=== PATIENT | female | born 1990 | race Caucasian/White ===

== ENCOUNTER 2017-12-06 07:12 | Inpatient (IN) | payer OTHER, MEDICAID ==
[~2017-12-06] VITALS: Ht 162.6 cm; Wt 45.9 kg
--- NOTE | ~2017-12-06 | PROC ---
[address] [address] PROCEDURE REPORT Name: RUBIN LUIS Room: [address] IN ..#: [id number] Admission: 12/06/17 Attend Phys: Isaac Bingham Discharge: Date of : 90 Report #: [id number] THIS REPORT FOR: //name// For GI report, please see the Provation report in Perceptive 7 content. By: 1449Medical Records Staff FRANNIE /SHARON
[2017-12-06 07:27] VITALS: BP 109/69
[2017-12-06] MEDS ORDERED: CARAFATE 1 GM TA1 G1 PO (07:31)
[2017-12-06] MEDS ORDERED: LACTAID FAS9000 UNIT PO (07:31)
[2017-12-06] MEDS ORDERED: BENTYL 20 MG TA20 M1 PO (07:31)
[2017-12-06] MEDS ORDERED: PREDNISONE 10 M10 MG PO (07:32)
[2017-12-06] MEDS ORDERED: TYLENOL EXTRA500 MG PO (07:32)
[2017-12-06 08:06] LABS: ABSOLUTE LYMPHOCYTES 1.5 thou/uL (0.8-5.3); ABSOLUTE MONOCYTES 1.6 thou/uL (0.0-1.2); ABSOLUTE NEUTROPHILS 9.7 thou/uL (1.6-8.1); BASOPHILS 0.2 %; EOSINOPHILS 0.3 %; HEMATOCRIT 30.1 % (37.0-47.0); HEMOGLOBIN 9.2 gm/dL (12.0-15.0); LYMPHOCYTES 11.5 %; MCH 18.7 pg (26.0-34.0); MCHC 30.4 g/dL (28.0-37.0); MCV 61.5 fL (80.0-100.0); MONOCYTES 12.7 %; MPV 6.4 fl. (7.2-11.1); NUCLEATED RBCS 0 /100WBC; PLATELET COUNT* 492 thou/uL (150-400); POLYS 75.3 %; RBC 4.89 mil/uL (4.20-5.00); RDW-CV 17.6 % (10.5-14.5); WBC 12.8 thou/uL (4.0-11.0)
[2017-12-06 08:15] LABS: CALCIUM 8.3 mg/dL (8.5-10.1); CREATININE 0.9 mg/dL (0.6-1.3)
[2017-12-06 08:19] LABS: ALBUMIN 2.5 g/dL (3.4-5.0); TOTAL BILIRUBIN 0.6 mg/dL (<0.1-1.0)
[2017-12-06 08:22] LABS: POTASSIUM 2.7 mmol/L (3.5-5.1)
[2017-12-06 08:27] LABS: ANISOCYTOSIS 2+; HYPOCHROMASIA 2+; MICROCYTES 2+; PLATELET ESTIMATE ADEQUATE; POLYCHROMASIA 2+
[2017-12-06 08:57] LABS: URINE BILIRUBIN NEGATIVE (Negative); URINE BLOOD 2+ (Negative); URINE CLARITY CLEAR; URINE COLOR YELLOW; URINE GLUCOSE-RANDOM NEGATIVE (Negative); URINE KETONES NEGATIVE (Negative); URINE NITRITE-REFLEX NEGATIVE (Negative); URINE PROTEIN NEGATIVE (Negative); URINE SPECIFIC GRAVITY <= 1.005 (1.005-1.030); URINE UROBILINOGEN 0.2 E.U./dl (0.2-1.0)
[2017-12-06 08:59] LABS: URINE LEUKOCYTES-REFLEX 3+ (Negative)
[2017-12-06 09:06] LABS: SQUAMOUS 0-3 Few /LPF (0-3)
[2017-12-06 09:07] LABS: CASTS None Seen /LPF (None Seen); CRYSTALS None Seen /LPF (None Seen); MUCUS 0-3 Light strn/LPF (None Seen); URINE RBC 3-10 Few /HPF (0-2)
[2017-12-06 11:48] VITALS: BP 99/63
[2017-12-06 11:55] VITALS: BP 105/42
[2017-12-06] MEDS ORDERED: PEPCID20 MG PO (14:36)
[2017-12-06 17:11] VITALS: BP 92/46
[2017-12-06 20:00] VITALS: BP 104/51
[2017-12-07 04:33] LABS: HEMATOCRIT 24.8 % (37.0-47.0); HEMOGLOBIN 7.4 gm/dL (12.0-15.0); MCH 18.7 pg (26.0-34.0); MCV 62.5 fL (80.0-100.0); MPV 6.6 fl. (7.2-11.1); RBC 3.97 mil/uL (4.20-5.00); RDW-CV 17.7 % (10.5-14.5); WBC 9.8 thou/uL (4.0-11.0)
[2017-12-07 07:45] VITALS: BP 91/46
[2017-12-07 09:38] LABS: CALCIUM 8.3 mg/dL (8.5-10.1); CREATININE 0.5 mg/dL (0.6-1.3); POTASSIUM 3.8 mmol/L (3.5-5.1)
[2017-12-07 16:06] VITALS: BP 104/66
[2017-12-07 20:30] VITALS: BP 109/44
[2017-12-07 23:38] VITALS: BP 97/41
[2017-12-08 04:31] LABS: HEMATOCRIT 27.2 % (37.0-47.0); HEMOGLOBIN 8.1 gm/dL (12.0-15.0); MCH 18.6 pg (26.0-34.0); MCHC 29.8 g/dL (28.0-37.0); MCV 62.3 fL (80.0-100.0); MPV 6.4 fl. (7.2-11.1); RBC 4.36 mil/uL (4.20-5.00); RDW-CV 17.7 % (10.5-14.5); WBC 9.6 thou/uL (4.0-11.0)
[2017-12-08 04:52] LABS: ALBUMIN 2.2 g/dL (3.4-5.0); CALCIUM 8.7 mg/dL (8.5-10.1); CREATININE 0.6 mg/dL (0.6-1.3); POTASSIUM 3.9 mmol/L (3.5-5.1); TOTAL BILIRUBIN 0.1 mg/dL (<0.1-1.0); TOTAL PROTEIN 6.6 g/dL (6.4-8.2)
[2017-12-08 07:30] VITALS: BP 94/56
[2017-12-08 10:35] VITALS: BP 93/53; BP 94/56
[2017-12-08 15:10] VITALS: BP 101/32
--- NOTE | 2017-12-08 16:41 | CON ---
[address] [address] CONSULTATION Name: RUBIN LUIS Room: [address] IN .R.#: [id number] Admission: 12/06/17 Attend Phys: Isaac Bingham Discharge: Date of : 90 Report #: [id number] THIS REPORT FOR: //name// CC: Kerline Salcedo DATE OF SERVICE: 12/06/2017 REASON FOR CONSULT: Diarrhea, evidence of colitis per CT and abdominal pain. HISTORY OF PRESENT ILLNESS: This is a 27-year-old female who reports that she was diagnosed with Crohn's disease 11 years ago. She follows Dr. Chandler, but wants to change since she believes that he is not doing much for her. She reports that her Crohn's was in remission for the past 8 years, but since May she started having pain and diarrhea. She reports that her stool is pretty much watery and frequent, but denies any hematochezia. She claims that she has lost 50 pounds in the last 4 months. She denies any fever, chills, nausea and vomiting. PAST MEDICAL HISTORY: Significant for Crohn's disease and GERD. ALLERGIES: SIGNIFICANT FOR IBUPROFEN. MEDICATIONS: Include prednisone, dicyclomine, lactase, sucralfate and acetaminophen. SOCIAL HISTORY: The patient lives at home and has a baby. Denies tobacco or alcohol use. FAMILY HISTORY: Negative for GI malignancy. PHYSICAL EXAMINATION: VITAL SIGNS: Reveals normal vitals. LUNGS: Clear. CARDIOVASCULAR: Regular. ABDOMEN: Soft and tender to palpation in all 4 quadrants. Bowel sounds are positive. NEUROLOGIC: The patient is alert and oriented x 3. There is no focal neurologic deficit. LABORATORY DATA: Reveal sodium of 132, potassium 2.7, BUN is 7, creatinine 0.9, glucose 142, AST 7, ALT 11, total bilirubin 0.6 and albumin is 2.5. WBC is 12.8 with hemoglobin of 9.2, MCV 61 and platelet is 492. There is also evidence of urinary tract infection. IMAGING: CT of abdomen and pelvis was obtained. [place] [address] CONSULTATION Name: TOBYRUBIN L Room: [address] IN [facility]#: [id number] Admission: 12/06/17 Attend Phys: Isaac Bingham Discharge: Date of : 90 Report #: [id number] colitis noted in this study. There is also wall thickening in the terminal ileum. ASSESSMENT AND PLAN: The patient has been on prednisone 50 mg daily for the past month. We will perform upper and lower endoscopy on Wednesday after we correct her electrolytes. We will prep her tomorrow for the same. I will also obtain sed rate and CRP. <ELECTRONICALLY SIGNED> By: Yee Severino MD 12/08/17 1641 [id number] Severino MD /dionne
[2017-12-09] VITALS: BP 93/50
[2017-12-09 04:09] LABS: HEPATITIS B SURFACE AG Negative (Negative)
[2017-12-09 08:57] VITALS: BP 99/53
[2017-12-09] MEDS ORDERED: PREDNISONE 20 M20 MG PO (12:00)
[2017-12-09] MEDS ORDERED: PHENERGAN 25 MG25 M1 PO (12:01)
[2017-12-09] MEDS ORDERED: PENTASA 250 MG250 MG PO (12:02)
[2017-12-09] MEDS ORDERED: OXYCODONE HCL 55 MG PO (12:03)
[2017-12-09] MEDS ORDERED: PREDNISONE 10 M10 MG PO (12:21)
[2017-12-09] MEDS ORDERED: BENTYL 20 MG TA20 M1 PO (12:24)
[2017-12-09] MEDS ORDERED: ONDANSETRON HCL4 M2 PO (14:15)
[2017-12-09 16:25] VITALS: BP 96/54
[2017-12-09 17:45] VITALS: BP 96/54
[2017-12-09 18:19] VITALS: BP 96/54
[2017-12-09 19:00] VITALS: BP 96/54
--- NOTE | 2018-01-05 09:14 | PATH ---
[address] [address] PATHOLOGY RPT PROCEDURE Name: RUBIN PERDOMO Room: [address] IN M.R.#: [id number] Admission: 12/06/17 Date of : 90 Discharge: 12/09/17 Report #: [id number] Path Case #: [id number] [facility] Accession Number: [id number] . 01 Material submitted: . PART A: TERMINAL ILEUM BIOPSIES PART B: RANDOM COLON BIOPSIES . 01 Clinical history: . Severe colitis with ulceration, duodenitis . 02 Diagnosis: A. Terminal ileum biopsies: - Focal fresh hemorrhage and otherwise normal small intestinal mucosa. . B. Random colon biopsies: - Chronic and severe active colitis including prominent submucosal inflammation, negative for granulomas, viral inclusion and dysplasia (see comment). QTP12/13/2017 . 02 Comment: The random colon biopsies (B) show benign colonic mucosa with diffuse active colitis including easily identified crypt abscesses as well as evidence of chronic inflammation with focal crypt distortion but minimal basal lymphoplasmacytosis and one of the fragments includes abundant submucosal tissue with inflammation and fibrosis. Review of the history and physical by Dr. Saeid Elizabeth dated 12/12/2017 reveals the patient to have a history of Crohn's disease and the histologic features are compatible with active Crohn's disease. . (NACHO:pit 12/13/2017) . 02 Electronically signed: . Isaias Varma MD, Pathologist NPI- [id number] . 01 Gross description: . A. The specimen is received in formalin, labeled "Rubin Perdomo, terminal ileum biopsies" and consists of a fragment of benjamin soft tissue measuring 0.4 x 0.3 x 0.1 cm which is entirely submitted in A1. The container and its contents are further examined and no additional tissue is identified. . B. The specimen is received in formalin, labeled "Rubin Perdomo, random colon biopsies" and consists of multiple fragments of benjamin soft tissue measuring 1.1 x 0.6 x 0.2 cm in aggregate. They are entirely submitted in B1. (SDY; 12/10/2017) [place] [address] PATHOLOGY RPT PROCEDURE Name: RUBIN PERDOMO Nory Room: [address] IN M.R.#: [id number] Admission: 12/06/17 Date of : 90 Discharge: 12/09/17 Report #: [id number] Path Case #: [id number] SYU/SYU . 02 Pathologist provided ICD-10: K52.9 . 02 CPT . 268987, [id number] Performed at: [address], [place], [place] [id number] MD Mauricio Hinson MD Phone: [phone] Performed at: 02 [facility] [address], [place], [place] [id number] MD Isaias Varma MD Phone: [phone]
== END 2017-12-09 19:00 | disposition home or self-care (01) | DRG 386 ==
LOC: M.ERS 07:12 → M.TBA-ER 10:02 → M.3W 10:02
PROVIDERS: Emergency Medicine; Internal Medicine Gastroenterology; Nurse Practitioner Adult Health; ADMIT Internal Medicine
PROC: 0DBB8ZX Excision of Ileum, Via Natural or Artificial Opening Endoscopic, Diagnostic (ICD-10-PCS; principal; 2017-12-08)
PROC: 0DBN8ZX Excision of Sigmoid Colon, Via Natural or Artificial Opening Endoscopic, Diagnostic (ICD-10-PCS; principal; 2017-12-08)
PROC: 0DBL8ZX Excision of Transverse Colon, Via Natural or Artificial Opening Endoscopic, Diagnostic (ICD-10-PCS; principal; 2017-12-08)
PROC: 0DBM8ZX Excision of Descending Colon, Via Natural or Artificial Opening Endoscopic, Diagnostic (ICD-10-PCS; principal; 2017-12-08)
PROC: 0DJ08ZZ Inspection of Upper Intestinal Tract, Via Natural or Artificial Opening Endoscopic (ICD-10-PCS; principal; 2017-12-08)
DX: K50.80 Crohn's disease of both small and large intestine without complications (principal); K63.3 Ulcer of intestine; Z68.1 Body mass index [BMI] 19.9 or less, adult; D50.9 Iron deficiency anemia, unspecified; R63.4 Abnormal weight loss; K64.8 Other hemorrhoids; E87.6 Hypokalemia; K21.9 Gastro-esophageal reflux disease without esophagitis; K44.9 Diaphragmatic hernia without obstruction or gangrene; Z88.6 Allergy status to analgesic agent; Z90.722 Acquired absence of ovaries, bilateral; Z79.2 Long term (current) use of antibiotics; Z79.899 Other long term (current) drug therapy

== ENCOUNTER 2017-12-12 21:08 | Inpatient (IN) | payer OTHER, MEDICAID ==
[~2017-12-12] VITALS: Ht 162.6 cm; Wt 45.8 kg
[~2017-12-12 21:08] MED LIST: BENTYL 20 MG TA20 M1 PO; CARAFATE 1 GM TA1 G1 PO; LACTAID FAS9000 UNIT PO; ONDANSETRON HCL4 M2 PO; OXYCODONE HCL 55 MG PO; PENTASA 250 MG250 MG PO; PEPCID20 MG PO; PHENERGAN 25 MG25 M1 PO; PREDNISONE 10 M10 MG PO; PREDNISONE 20 M20 MG PO; TYLENOL EXTRA500 MG PO
[2017-12-12 21:34] VITALS: BP 81/34
[2017-12-12 22:03] LABS: ABSOLUTE BASOPHILS 0.1 thou/uL (0.0-0.2); ABSOLUTE LYMPHOCYTES 2.7 thou/uL (0.8-5.3); ABSOLUTE MONOCYTES 0.7 thou/uL (0.0-1.2); ABSOLUTE NEUTROPHILS 12.5 thou/uL (1.6-8.1); BASOPHILS 0.4 %; EOSINOPHILS 0.3 %; HEMATOCRIT 28.8 % (37.0-47.0); HEMOGLOBIN 8.5 gm/dL (12.0-15.0); LYMPHOCYTES 16.8 %; MCH 18.6 pg (26.0-34.0); MCHC 29.7 g/dL (28.0-37.0); MCV 62.8 fL (80.0-100.0); MONOCYTES 4.3 %; MPV 6.1 fl. (7.2-11.1); NUCLEATED RBCS 0 /100WBC; PLATELET COUNT* 702 thou/uL (150-400); POLYS 78.2 %; RBC 4.59 mil/uL (4.20-5.00); RDW-CV 18.4 % (10.5-14.5)
[2017-12-12 22:25] LABS: CALCIUM 8.7 mg/dL (8.5-10.1); CREATININE 0.9 mg/dL (0.6-1.3); POTASSIUM 3.1 mmol/L (3.5-5.1)
[2017-12-12 22:30] LABS: ALBUMIN 2.5 g/dL (3.4-5.0); TOTAL BILIRUBIN 0.8 mg/dL (<0.1-1.0); TOTAL PROTEIN 6.9 g/dL (6.4-8.2)
[2017-12-12 23:30] VITALS: BP 93/44
[2017-12-12 23:38] LABS: ANISOCYTOSIS 2+; HYPOCHROMASIA 2+; MACROCYTES Occasional; MICROCYTES 2+; OVALOCYTES 1+; POIKILOCYTOSIS 1+; POLYCHROMASIA Occasional; SCHISTOCYTES Occasional
[2017-12-12 23:40] VITALS: BP 93/47
[2017-12-13 03:31] LABS: URINE BILIRUBIN NEGATIVE (Negative); URINE BLOOD NEGATIVE (Negative); URINE CLARITY CLEAR; URINE COLOR YELLOW; URINE GLUCOSE-RANDOM NEGATIVE (Negative); URINE KETONES NEGATIVE (Negative); URINE LEUKOCYTES-REFLEX 1+ (Negative); URINE NITRITE-REFLEX NEGATIVE (Negative); URINE PROTEIN NEGATIVE (Negative); URINE SPECIFIC GRAVITY <= 1.005 (1.005-1.030); URINE UROBILINOGEN 0.2 E.U./dl (0.2-1.0)
[2017-12-13 03:39] LABS: AMP/METHAMP Negative (Negative); BARBITURATES Negative (Negative); BENZODIAZEPINES Negative (Negative); COCAINE Negative (Negative); METHADONE Negative (Negative); OPIATES POSITIVE (Negative); PCP Negative (Negative); THC Negative (Negative)
[2017-12-13 03:55] LABS: CASTS None Seen /LPF (None Seen); CRYSTALS None Seen /LPF (None Seen); MUCUS 0-3 Light strn/LPF (None Seen); SQUAMOUS 0-3 Few /LPF (0-3); URINE RBC 3-10 Few /HPF (0-2); URINE WBC-REFLEX 0-5 Rare /HPF (0-5)
[2017-12-13 04:27] VITALS: BP 86/41
[2017-12-13 05:00] VITALS: BP 88/52
--- NOTE | 2017-12-13 06:15 | NUR ---
PATIENT ARRIVED ON FLOOR FROM ER ABOUT 2335. PATIENT ADMISSION HISTORY AND ASSESSMENT WAS COMPLETED CHARTED. PATIENT WAS RECENTLY DISCHARGED ON WEDNESDAY WITH SAME SYMPTOMS. IV FLUIDS WERE STARTED AT 125 ML/HR. POTASSIUM WAS 3.1 AND REPLACED PER PROTOCOL CAME UP TO 3.9. HBG WAS 6.[address] GONSALES. ORDER FOR TYPE AND SCREEN AND REDRAW AT 0800. PATIENT WAS GIVEN PAIN MEDS ABOUT EVERY 2-3 HOURS. WILL CONTINUE TO MONITOR.
[2017-12-13 08:00] VITALS: BP 88/52
--- NOTE | 2017-12-13 11:55 | NUR ---
INITIAL ASSESSMENT: Pt evaluated for d/c planning needs. Reviewed chart and spoke with nurse and pt. Pt is alert and oriented. Pt was hospitalized last week and given all information for her medication. 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 Pt currently does not have insurance and said she would try to find a job with insurance coverage. No d/c needs indicated.
--- NOTE | 2017-12-13 12:19 | NUR ---
Nutrition: Pt was here last week, just discharged, and now readmitted with same problem. Crohns flare up. Wt: 101#. Usually weighs 160#. She stated she is trying to drink Clear liquids. Albumin 1.8, prealb 15.2. Has abdominal hernia. BMI: 17.3. She did like the Ensure Clear Apple when RD ordered it for her last week. RD will order again. At mild to moderate risk. No other nutrition interventions for today. Encouraged pt to call with further nutrition questions/needs. Will follow up per protocol, 12/18/17.
[2017-12-13 13:40] VITALS: BP 82/40; BP 88/48; BP 90/48; BP 92/54
[2017-12-13 18:06] LABS: HEMATOCRIT 30.2 % (37.0-47.0)
[2017-12-13 18:07] LABS: HEMOGLOBIN 8.9 gm/dL (12.0-15.0)
--- NOTE | 2017-12-13 19:11 | NUR ---
ASSUMED CARE THIS AM, A/O, PAIN AND NAUSEA CONTROLLED WITH MEDICATION, SHOAIB IVF, ABT, 1 UNIT PRBC W/O S/S ADR. UP AD LORAINE FOR BATHROOM, GAIT STEADY. MED CHANGES BY DR SOUZA NOTED, IN PLACE, CARE PLAN REVIEWED, NO QUESTIONS AT THIS TIME.
[2017-12-13 20:30] VITALS: BP 86/48
[2017-12-14 00:08] VITALS: BP 146/96
[2017-12-14 03:47] LABS: HEMATOCRIT 27.6 % (37.0-47.0); HEMOGLOBIN 8.5 gm/dL (12.0-15.0); MCH 20.3 pg (26.0-34.0); MCHC 30.7 g/dL (28.0-37.0); MCV 66.1 fL (80.0-100.0); MPV 6.3 fl. (7.2-11.1); RBC 4.17 mil/uL (4.20-5.00); RDW-CV 21.1 % (10.5-14.5)
[2017-12-14 04:00] LABS: ALBUMIN 1.8 g/dL (3.4-5.0); CALCIUM 8.5 mg/dL (8.5-10.1); CREATININE 0.5 mg/dL (0.6-1.3); MAGNESIUM 2.1 mg/dL (1.8-2.4); POTASSIUM 4.3 mmol/L (3.5-5.1); TOTAL BILIRUBIN 0.4 mg/dL (<0.1-1.0); TOTAL PROTEIN 5.5 g/dL (6.4-8.2)
--- NOTE | 2017-12-14 07:11 | NUR ---
PATIENT HAS SLEPT WELL THROUGHOUT THE NIGHT WITHOUT ANY ISSUES. PAIN CONTROLLED WITH ORAL PAIN MEDICAITON. VSS ON RA ALTHOUGH BP LOW. NOTIFIED. PATIENT IS UP AD-LORAINE AND STEADY. IV IN RIGHT AC-NS @ 70ML/HR. IV ABT'S GIVEN WITHOUT ANY ADVERSE SIDE EFFECTS NOTED. PATIENT INSTRUCTED TO USE CALL LIGHT WHEN NEEDING ASSISTANCE. HOURLY ROUNDS MADE. WILL CONTINUE WITH PLAN OF CARE AND NURSING TO MONITOR.
[2017-12-14 08:15] VITALS: BP 78/37
[2017-12-14 16:00] VITALS: BP 93/42
--- NOTE | 2017-12-14 18:44 | NUR ---
SHOAIB PO FOOD AND FLUID WELL, LESS PAIN/NAUSEA TODAY, SHOAIB ADVANCING DIET WELL, COMPLIANT W/ MEDS/CARES, VOICES NEEDS APPROP, UP AD LORAINE, SHOWERED EARLIER TODAY, NEW IV ACCESS TO LEFT FA X 1 ATTEMPT. CARE PLAN REVIEWED W/ PATIENT, DENIES QUESTIONS, CONT POC.
[2017-12-14 21:00] VITALS: BP 91/36
[2017-12-15] VITALS: BP 89/47
[2017-12-15 03:55] LABS: HEMATOCRIT 27.5 % (37.0-47.0); HEMOGLOBIN 8.3 gm/dL (12.0-15.0); MCHC 30.3 g/dL (28.0-37.0); MPV 6.6 fl. (7.2-11.1); RBC 4.16 mil/uL (4.20-5.00); RDW-CV 21.2 % (10.5-14.5); WBC 12.9 thou/uL (4.0-11.0)
[2017-12-15 04:32] LABS: ALBUMIN 1.9 g/dL (3.4-5.0); CALCIUM 8.3 mg/dL (8.5-10.1); CREATININE 0.5 mg/dL (0.6-1.3); MAGNESIUM 2.1 mg/dL (1.8-2.4); POTASSIUM 4.2 mmol/L (3.5-5.1); TOTAL BILIRUBIN 0.2 mg/dL (<0.1-1.0); TOTAL PROTEIN 5.4 g/dL (6.4-8.2)
--- NOTE | 2017-12-15 07:56 | NUR ---
PATIENT HAS BEEN RESTLESS DURING THE NIGHT. MEDICATIONS GIVEN ORDERED. VSS ON RA ALTHOUGH BP LOW. PATIENT IS UP AD-LORAINE AND STEADY. NO C/O NAUSEA. IV IN LEFT FOREARM-NS @ 70ML/HR. IV ABT'S GIVEN WITHOUT ANY ADVERSE SIDE EFFECTS NOTED. PATIENT INSTRUCTED TO USE CALL LIGHT WHEN NEEDING ASSISTANCE. HOURLY ROUNDS MADE. WILL CONTINUE WITH PLAN OF CARE AND NURSING TO MONITOR.
[2017-12-15 08:10] VITALS: BP 87/51
[2017-12-15 16:45] VITALS: BP 104/47
--- NOTE | 2017-12-15 17:35 | NUR ---
PATIENT RESTING IN BED. PATIENT IS UP AD LORAINE IN ROOM. PATIENT HAS DENIED ANY PAIN TODAY. PATIENT IS TOLERATING DIET. SOFT UNFORMED BOWEL MOVEMENT. PATIENT DENIES ANY NEEDS AT THIS TIME. CALL LIGHT WITHIN REACH. WILL CONTINUE TO MONITOR.
[2017-12-15 23:20] VITALS: BP 85/45
--- NOTE | 2017-12-16 07:00 | NUR ---
PT UP AD LORAINE IN ROOM. LFA IVF INFUSING PER PUMP, ABX GIVEN ORDERED. PO STEROIDS GIVEN ORDERED. ZOFRAN GIVEN X1 FOR CO SLIGHT NAUSEA WITH GOOD RESULT. PO PAIN MED GIVEN X2 FOR CO ABD PAIN. IV PAIN MED GIVEN X2 FOR CO ABD PAIN. ABLE TO USE CALL LITE AND MAKE NEEDS KNOWN.
[2017-12-16 08:40] VITALS: BP 87/37
[2017-12-16 16:18] VITALS: BP 93/53
--- NOTE | 2017-12-16 19:32 | NUR ---
PATIENT HAS BEEN A/O X 4 THIS SHIFT. HAS DENIED ANY PAIN OR NAUSEA. PATIENT CONTINUES ON IV FLUIDS AND ANTIBIOTICS. PATIENT RECEIVED IRON INFUSION THIS SHIFT. UP AD LORAINE IN ROOM. CONTINUES ON ORAL STEROIDS. TOLERATING DIET. HOURLY ROUNDING COMPLETED. CALL LIGHT WITHIN REACH. WILL CONTINUE WITH PLAN OF CARE.
[2017-12-16 19:55] VITALS: BP 91/45
[2017-12-17 00:13] VITALS: BP 95/41
--- NOTE | 2017-12-17 05:38 | NUR ---
PT SLEPT MOST OF SHIFT. ASSESSMENT DOCUMENTED. MEDS GIVEN PER E-MAR. IV PATENT, FLUIDS INFUSING. PAIN AND NAUSEA MEDS GIVEN PER E-MAR. WILL CONTINUE WITH PLAN OF CARE.
[2017-12-17 09:35] VITALS: BP 100/46
[2017-12-17] MEDS ORDERED: PREDNISONE 20 M20 MG PO (11:20)
[2017-12-17 11:56] VITALS: BP 100/46
--- NOTE | 2017-12-17 13:16 | NUR ---
Nutrition: follow up. Pt tolerating Soft/fiber restricted diet. +soft BM. BG 154, alb 1.9, prealb 18.8. Discharge orders in.
--- NOTE | 2017-12-17 13:36 | NUR ---
PATIENT GIVEN DISCHARGE INSTRUCTIONS AND PRESCRIPTIONS AT THIS TIME. PATIENT VERBALIZED UNDERSTANDING IN REGARDS TO FOLLOW UP APPOINTMENTS AND MEDICATIONS. PATIENT'S IV REMOVED. PATIENT DISCHARGED TO HOME WITH ALL BELONGINGS. ESCORTED OFF NURSING UNIT VIA WHEELCHAIR WITH ALL BELONGINGS.
--- NOTE | 2017-12-17 16:52 | CON ---
[address] [address] CONSULTATION Name: RUBIN LUIS Room: [address]#: [id number] Admission: 12/12/17 Attend Phys: Saeid Elizabeth MD Discharge: 12/17/17 Date of : 90 Report #: [id number] THIS REPORT FOR: //name// CC: Saeid Churchill Garland DATE OF SERVICE: 12/13/2017 REASON FOR CONSULT: Crohn's disease and symptoms of nausea and abdominal pain. HISTORY OF PRESENT ILLNESS: This is a 27-year-old female with history of Crohn's disease who was recently discharged from the hospital with diagnosis of [id number]-[id number] Crohn's disease involving the terminal ileum and the colon. The patient had deep ulcerations throughout her colon, was placed on IV steroids and antibiotics. She reports that after going home, she continued to have pain and discomfort. She was not able to take the p.o. antibiotics. She had fever of 103, which prompted her to come back to hospital. The patient reports she continues to have anorexia and is losing weight. PAST MEDICAL HISTORY: Significant for history of recent hospitalization for exacerbation of Crohn's, electrolyte imbalance and weight loss. ALLERGIES: SIGNIFICANT TO IBUPROFEN. MEDICATIONS: Please refer to the MAR. SOCIAL HISTORY: The patient lives at home. Denies tobacco or alcohol use. She is currently unemployed. FAMILY HISTORY: Noncontributory. PHYSICAL EXAMINATION: VITAL SIGNS: Reveals blood pressure of ____/52, respirations 10, pulse 70 and and temperature 98.5. LUNGS: Clear. CARDIOVASCULAR: Regular. ABDOMEN: Tender to palpation in the lower quadrants. Bowel sounds are positive. NEUROLOGIC: The patient is alert and oriented x 3. LABORATORY DATA: Reveal sodium of 136, potassium 3.9, BUN is 6, creatinine 0.7 and glucose is 93. Liver function tests are all within normal limit. Total protein is 5.1, albumin 1.8. Iron is 9. Iron saturation 5%. WBC is 8.2 with hemoglobin of 6.9 and platelet of 388. UA was also obtained, [place] [address] CONSULTATION Name: TOBYRUBIN Nory Room: [address]#: [id number] Admission: 12/12/17 Attend Phys: Saeid Elizabeth MD Discharge: 12/17/17 Date of : 90 Report #: [id number] ASSESSMENT AND PLAN: The patient with anemia, history of Crohn's involving both small and large intestines. We will put her back on steroids, Pentasa and also antibiotics. We will also consider low residue diet and tried to talk to social workers in regards to getting her on biologics. <ELECTRONICALLY SIGNED> By: Yee Severino MD 12/17/17 8712 [id number] Severino MD /dionne
== END 2017-12-17 13:39 | disposition home or self-care (01) | DRG 386 ==
LOC: M.ERS 21:08 → M.TBA-ER 21:50 → M.3W 21:50
PROVIDERS: Emergency Medicine; Internal Medicine
PROC: 30233N1 Transfusion of Nonautologous Red Blood Cells into Peripheral Vein, Percutaneous Approach (ICD-10-PCS; principal; 2017-12-13)
DX: K50.80 Crohn's disease of both small and large intestine without complications (principal); D62 Acute posthemorrhagic anemia; K46.9 Unspecified abdominal hernia without obstruction or gangrene; D50.9 Iron deficiency anemia, unspecified; Z79.899 Other long term (current) drug therapy; Z88.6 Allergy status to analgesic agent; Z90.721 Acquired absence of ovaries, unilateral; Z79.52 Long term (current) use of systemic steroids; Z79.2 Long term (current) use of antibiotics

== ENCOUNTER 2018-01-12 15:36 | Emergency (ER) | payer OTHER, MEDICAID ==
[~2018-01-12] VITALS: Ht 162.6 cm; Wt 46.3 kg
[2018-01-12] MEDS ORDERED: FUSION PLUS CA1 EACH PO (16:00)
[2018-01-12] MEDS ORDERED: PRILOSEC OTC20 MG PO (16:01)
[2018-01-12 16:03] LABS: URINE BILIRUBIN NEGATIVE (Negative); URINE BLOOD NEGATIVE (Negative); URINE CLARITY CLEAR; URINE COLOR YELLOW; URINE GLUCOSE-RANDOM NEGATIVE (Negative); URINE KETONES NEGATIVE (Negative); URINE LEUKOCYTES-REFLEX NEGATIVE (Negative); URINE NITRITE-REFLEX NEGATIVE (Negative); URINE PROTEIN TRACE (Negative); URINE SPECIFIC GRAVITY 1.015 (1.005-1.030); URINE UROBILINOGEN 0.2 E.U./dl (0.2-1.0)
[2018-01-12 16:21] LABS: MCHC 31.5 g/dL (28.0-37.0); WBC 12.7 thou/uL (4.0-11.0)
[2018-01-12 16:23] LABS: HEMATOCRIT 34.9 % (37.0-47.0); MCH 22.7 pg (26.0-34.0); MCV 71.9 fL (80.0-100.0); MPV 8.3 fl. (7.2-11.1); NUCLEATED RBCS 0 /100WBC; RBC 4.85 mil/uL (4.20-5.00)
[2018-01-12 16:25] LABS: CREATININE 0.5 mg/dL (0.6-1.3); POTASSIUM 3.6 mmol/L (3.5-5.1)
[2018-01-12 16:30] LABS: ALBUMIN 2.9 g/dL (3.4-5.0); TOTAL BILIRUBIN 0.3 mg/dL (<0.1-1.0); TOTAL PROTEIN 7.3 g/dL (6.4-8.2)
[2018-01-12 17:10] LABS: ABSOLUTE BASOPHILS 0.1 thou/uL (0.0-0.2); ABSOLUTE NEUTROPHILS 9.5 thou/uL (1.6-8.1); METAMYELOCYTES 5 %
[2018-01-12 17:17] LABS: PLATELET ESTIMATE ADEQUATE
[2018-01-12 17:18] LABS: ANISOCYTOSIS 3+; OVALOCYTES Occasional; POIKILOCYTOSIS 1+
[2018-01-12 17:20] LABS: CLUMPED PLTS OCCASIONAL
[2018-01-12 17:23] LABS: MICROCYTES 2+; POLYCHROMASIA Occasional
[2018-01-12 17:26] LABS: HYPOCHROMASIA Occasional
[2018-01-12 17:43] LABS: PLATELET COUNT* 258 thou/uL (150-400)
[2018-01-12] MEDS ORDERED: OXYCODONE HCL 55 MG PO (18:18)
[2018-01-12 18:48] VITALS: BP 114/72
== END 2018-01-12 18:50 | disposition home or self-care (01) ==
LOC: M.ERS 15:36
PROVIDERS: Nurse Practitioner Family
DX: K50.90 Crohn's disease, unspecified, without complications (principal); Z88.6 Allergy status to analgesic agent

== ENCOUNTER 2018-01-15 12:49 | Inpatient (IN) | payer OTHER, MEDICAID ==
[~2018-01-15] VITALS: Ht 162.6 cm; Wt 42.6 kg
[~2018-01-15 12:49] MED LIST changes: +FUSION PLUS CA1 EACH PO; +PRILOSEC OTC20 MG PO
[2018-01-15 13:00] VITALS: BP 110/67
[2018-01-15 13:31] LABS: URINE BILIRUBIN NEGATIVE (Negative); URINE BLOOD 1+ (Negative); URINE COLOR YELLOW; URINE GLUCOSE-RANDOM NEGATIVE (Negative); URINE KETONES NEGATIVE (Negative); URINE LEUKOCYTES 3+ (Negative); URINE NITRITE NEGATIVE (Negative); URINE PROTEIN NEGATIVE (Negative); URINE SPECIFIC GRAVITY 1.015 (1.005-1.030); URINE UROBILINOGEN 0.2 E.U./dl (0.2-1.0)
[2018-01-15 13:32] LABS: URINE CLARITY HAZY
[2018-01-15 13:38] LABS: EOSINOPHILS 0.1 %; NUCLEATED RBCS 0 /100WBC
[2018-01-15 13:38] LABS: AMORPHOUS URATES Few /LPF (None Seen); CASTS None Seen /LPF (None Seen); SQUAMOUS 4-10 Moderate /LPF (0-3); URINE RBC 0-2 Rare /HPF (0-2); URINE WBC 0-5 Rare /HPF (0-5)
[2018-01-15 13:41] LABS: AMP/METHAMP Negative (Negative); BARBITURATES Negative (Negative); BENZODIAZEPINES Negative (Negative); COCAINE Negative (Negative); METHADONE Negative (Negative); OPIATES Negative (Negative); PCP Negative (Negative); THC Negative (Negative)
[2018-01-15 13:42] LABS: ABSOLUTE LYMPHOCYTES 1.9 thou/uL (0.8-5.3); ABSOLUTE MONOCYTES 0.7 thou/uL (0.0-1.2); ABSOLUTE NEUTROPHILS 7.6 thou/uL (1.6-8.1); BASOPHILS 0.2 %; HEMATOCRIT 34.2 % (37.0-47.0); HEMOGLOBIN 10.9 gm/dL (12.0-15.0); LYMPHOCYTES 18.8 %; MCH 23.2 pg (26.0-34.0); MCHC 31.8 g/dL (28.0-37.0); MCV 72.9 fL (80.0-100.0); MONOCYTES 6.7 %; MPV 6.1 fl. (7.2-11.1); PLATELET COUNT* 324 thou/uL (150-400); POLYS 74.2 %; RBC 4.69 mil/uL (4.20-5.00); RDW-CV 28.1 % (10.5-14.5); WBC 10.3 thou/uL (4.0-11.0)
[2018-01-15 13:45] LABS: CALCIUM 8.1 mg/dL (8.5-10.1); CREATININE 0.5 mg/dL (0.6-1.3)
[2018-01-15 13:46] LABS: POTASSIUM 2.9 mmol/L (3.5-5.1)
[2018-01-15 13:50] LABS: ALBUMIN 2.5 g/dL (3.4-5.0); TOTAL BILIRUBIN 0.3 mg/dL (<0.1-1.0); TOTAL PROTEIN 6.2 g/dL (6.4-8.2)
[2018-01-15 14:01] LABS: ANISOCYTOSIS 1+; HYPOCHROMASIA 1+; MICROCYTES 1+; PLATELET ESTIMATE ADEQUATE; POIKILOCYTOSIS 1+
[2018-01-15 16:00] VITALS: BP 102/57
--- NOTE | 2018-01-15 18:33 | NUR ---
RECEIVED REPORT FROM MAYELA IN ER. PT TRANSFERED TO TELE FLOOR AROUND 1610. PT A&O X4. VSS. O2 100% ON RA. CIVIL ENGINEERING ASSISTANT PLACED TRACING SR. ADMISSION ASSESSMENT, HISTORY AND EDUCATION COMPELTED CHARTED. IV TO LEFT FA INTACT AND INFUSING IVF AND POTASSIUM. PT REPORTED GENERALIZED ABDOMINAL PAIN THAT IS BEING MANAGED WITH IV PAIN MEDICATION TO PT RELIEF. PT ABLE TO BE UP AD LORAINE TO THE BATHROOM - STEADY ON FEET. PT TOLERATING CLD. FRIEND AT BEDSIDE UPON ADMISSION. PT ORIENTED TO ROOM, BED AND CALL LIGHT. PT COMMUNICATES UNDERSTANDING. PT CURRENTLY RESTING IN BED WATCHING TV. CALL LIGHT IS WITHIN REACH. LOW FALL RISK PRECAUTIONS IN PLACE. HOURLY ROUNDING PERFORMED. WCTM FOR DURATION OF SHIFT.
[2018-01-15 19:40] VITALS: BP 98/57
[2018-01-16] VITALS: BP 109/66
[2018-01-16 04:41] VITALS: BP 94/54
[2018-01-16 05:06] LABS: HEMATOCRIT 29.1 % (37.0-47.0); HEMOGLOBIN 9.3 gm/dL (12.0-15.0); MCH 23.7 pg (26.0-34.0); MPV 6.2 fl. (7.2-11.1); RBC 3.93 mil/uL (4.20-5.00); RDW-CV 27.4 % (10.5-14.5); WBC 6.9 thou/uL (4.0-11.0)
--- NOTE | 2018-01-16 05:30 | NUR ---
ASSUMED CARE OF PT AT 1900. PT IS ALERT AND OREINTED. VSS. PERRLA. PT REPORTS ONGOING ABDOMINAL PAIN. PAIN BEING TREATED WITH MORPHINE. PT IS IN SINUS RYTHM ON THE TELEMETRY. PT IS RESTING COMFORTABLY IN BED. RESPIRATIONS ARE EVEN AND NONLABORED. WILL CONTINUE TO MONITOR PT.
[2018-01-16 05:38] LABS: CALCIUM 8.3 mg/dL (8.5-10.1); CREATININE 0.4 mg/dL (0.6-1.3); MAGNESIUM 2.2 mg/dL (1.8-2.4); POTASSIUM 5.8 mmol/L (3.5-5.1)
[2018-01-16 08:00] VITALS: BP 103/67
[2018-01-16 11:57] VITALS: BP 109/66
[2018-01-16 16:19] VITALS: BP 94/50
[2018-01-16 17:22] LABS: % SATURATION 13 % (20-39); IRON 30 ug/dL (50-175)
[2018-01-16 20:00] VITALS: BP 109/59
--- NOTE | 2018-01-16 20:01 | NUR ---
RECEIVED REPORT FROM NATANAEL SHAW. ASSUMED CARE OF PT AROUND 0730. PT A&O X4. VSS. O2 SAT 98% ON RA. FARM HAND IN PLACE TRACING SR WITH NO CHANGES THIS SHIFT. AM ASSESSMENT AND VITALS COMPLETED CHARTED. PT REPORTED ABDOMINAL PAIN THROUGHOUT THE SHIFT THAT HAS BEEN MANAGED WITH IV PAIN MEDICAITON WITH RELIEF. PT SEEN BY GI. PT HAD 4 SMALL, DARK RED FORMED STOOLS THIS SHIFT. GI AWARE. MOTHER VISITED THIS AFTERNOON. IV TO LEFT FA INTACT AND INFUSING IVF. PT TOLERATING SOFT/FIBER RESTRICTED DIET. PT CURRENTLY RESTING IN BED WATCHING TV. LOW FALL RISK PRECAUTIONS IN PLACE. CALL LIGHT IS WITHIN REACH. HOURLY ROUNDING PERFORMED.
[2018-01-17] VITALS: BP 96/49
--- NOTE | 2018-01-17 00:44 | NUR ---
ASSUMED CARE OF PATIENT AT 1900 THE PATIENT REMAINS SR ON THE MONITOR O2 SAT MAINTAINED ON RA CONTINUES TO BE UP AD LORAINE THE ROUTINE ET PRN REGIMEN CONTINUES TO BE EFFECTIVE FOR SX MANAGEMENT NAUSEA AND PAIN SAFETY INTERVENTIONS CONTINUE BED LOWERED WHEELS LOCKED CALL LIGHT IN REACH SIDE RAILS UP REPORT GIVEN TO ONCNORRIS SHAW
[2018-01-17 04:00] VITALS: BP 92/47
[2018-01-17 05:14] LABS: HEMATOCRIT 26.5 % (37.0-47.0); HEMOGLOBIN 8.6 gm/dL (12.0-15.0); MCHC 32.6 g/dL (28.0-37.0); MCV 73.5 fL (80.0-100.0); MPV 6.2 fl. (7.2-11.1); NUCLEATED RBCS 0 /100WBC; PLATELET COUNT* 266 thou/uL (150-400); RDW-CV 27.4 % (10.5-14.5); WBC 5.2 thou/uL (4.0-11.0)
--- NOTE | 2018-01-17 05:26 | NUR ---
Assumed care of patient at 0045 and received report from outgoing nurse. Agree with physical assessment charted by previous nurse. Monitor shows SR on telemetry. All VSS. Patient A&O x4; up ad wendy in room. Left FA IV intact infusing NS. Pain controlled with medications; see MAR. Hourly rounding completed for patient safety. Call light within patient's reach. Will continue to monitor.
[2018-01-17 05:35] LABS: ALBUMIN 1.9 g/dL (3.4-5.0); CALCIUM 7.9 mg/dL (8.5-10.1); CREATININE 0.4 mg/dL (0.6-1.3); TOTAL BILIRUBIN 0.2 mg/dL (<0.1-1.0); TOTAL PROTEIN 5.2 g/dL (6.4-8.2)
[2018-01-17 06:30] LABS: ABSOLUTE LYMPHOCYTES 0.5 thou/uL (0.8-5.3); ABSOLUTE MONOCYTES 0.2 thou/uL (0.0-1.2); ABSOLUTE NEUTROPHILS 4.5 thou/uL (1.6-8.1)
[2018-01-17 06:31] LABS: ANISOCYTOSIS 3+; HYPOCHROMASIA 1+; MICROCYTES 2+
[2018-01-17 06:32] LABS: ESR (SEDRATE) 33 mm/hr (0-20)
[2018-01-17 08:00] VITALS: BP 91/65
[2018-01-17] MEDS ORDERED: OXYCODONE HCL 55 MG PO (09:17)
[2018-01-17] MEDS ORDERED: VITAMIN B125000 MCG PO (09:17)
[2018-01-17] MEDS ORDERED: OXYCONTIN20 M1 PO (09:17)
--- NOTE | 2018-01-17 10:28 | EKG ---
[place] [address] ELECTROCARDIOGRAM REPORT Name: RUBIN LUIS Room: [address] IN .R.#: [id number] Admission: 01/15/18 Attend Phys: Micheal King, Discharge: Date of : 90 Report #: [id number] THIS REPORT FOR: //name// [facility] ED Test Date: 2018-01-15 Test Time: 13:58:30 Pat Name: RUBIN LUIS Department: Room: [facility] Gender: F Over [employer] Driver: : 1990 Requested By: Bindu Gooden Order Number: [id number] MD: Angelo Graves Measurements Intervals [place] Rate: 82 P: 50 LA: 121 QRS: 46 QRSD: 69 T: 16 QT: 361 QTc: 422 Interpretive Statements Sinus rhythm No previous ECG available for comparison Electronically Signed On 01-17-2018 10:28:50 CDT by Angelo Graves [email or web address] <ELECTRONICALLY SIGNED> By: Angelo Graves MD, [facility] 01/17/18 1028 1358 [id number] Angelo Graves MD, FACC /EPI
--- NOTE | 2018-01-17 14:51 | NUR ---
ASSESSMENT COMPLETED REFER TO COMPUTER CHARTING. PATIENT RESTING IN BED REPORTING ABD PAIN, ORAL PAIN MEDICATIONS GIVEN. PATIENT UP SELF IN ROOM. IV SALINE LOCKED. ON ROOM AIR. BED IN LOW AND LOCKED POSITION. CALL LIGHT WITHIN REACH. PATIENT TRANSFERING TO ROOM 108. REPORT GIVEN NO QUESTIONS OR CONCENS AT THIS TIME. PATIENT NOTIFIED OF TRANSFER AND AGREEABLE.
[2018-01-17 15:10] VITALS: BP 119/78
[2018-01-17 16:00] VITALS: BP 119/69
--- NOTE | 2018-01-17 19:42 | NUR ---
assumed care of pt at 1430 today, pt up ad wendy, showered independently, iron infused as ordered, able to make needs known. PRN pain medication administered with results 05/26, pt also has heating pad for relief, hourly rounding maintained, call light in reach
[2018-01-17 20:40] VITALS: BP 117/77
[2018-01-18 04:00] LABS: ABSOLUTE LYMPHOCYTES 0.5 thou/uL (0.8-5.3); ABSOLUTE MONOCYTES 0.4 thou/uL (0.0-1.2); ABSOLUTE NEUTROPHILS 4.7 thou/uL (1.6-8.1); HEMATOCRIT 28.5 % (37.0-47.0); LYMPHOCYTES 8.3 %; MCH 23.6 pg (26.0-34.0); MCHC 31.6 g/dL (28.0-37.0); MCV 74.6 fL (80.0-100.0); MONOCYTES 6.5 %; MPV 6.2 fl. (7.2-11.1); NUCLEATED RBCS 0 /100WBC; PLATELET COUNT* 294 thou/uL (150-400); POLYS 85.2 %; RBC 3.82 mil/uL (4.20-5.00); RDW-CV 27.6 % (10.5-14.5); WBC 5.5 thou/uL (4.0-11.0)
[2018-01-18 04:18] LABS: CREATININE 0.4 mg/dL (0.6-1.3)
--- NOTE | 2018-01-18 06:57 | NUR ---
PATIENT HAS RESTED WELL THROUGHOUT THE NIGHT WITHOUT ANY ISSUES. PAIN WELL CONTROLLED. NO C/O NAUSEA. PAIN MEDICATION GIVEN ORDERED AND CHARTED. IV IN LEFT FOREARM-SL. PATIENT INSTRUCTED TO USE CALL LIGHT WHEN NEEDING ASSISTANCE. HOURLY ROUNDS MADE. WILL CONTINUE WITH PLAN OF CARE AND NURSING TO MONITOR.
[2018-01-18 08:35] VITALS: BP 125/69
[2018-01-18 12:11] VITALS: BP 125/69
--- NOTE | 2018-01-18 14:26 | NUR ---
Nutrition: Consult receieved for wt loss d/t crohns. RD familiar with pt. Pt's usual wt was 160# in adulthood. Lost down to 101# a month ago. She was able to take Clear supplements at that time. She is now down to 94#. Severe pain. She is on fiber restricted diet. She has been RX oxy & B12 to go home. Discharging today. Lipase 444, BG 180, alb 1.9, prealb 31.8. Apparently, she didn't follow up previously with outpatient treatment. Hopeful for good medical compliance. Pt is familiar with low fiber diet - follows it at home. No other nutrition interventions needed. Moderate to high risk.
--- NOTE | 2018-01-18 14:30 | NUR ---
PATIENT DISCHARGED TO HOME AT THIS TIME WITH SPOUSE. VERBALIZES UNDERSTANDING OF PAPERWORK AND SCRIPTS. GI SAW PATIENT PRIOR TO DC. IV DC'D. NO PRN PAIN MEDICATION REQUIRED THIS SHIFT. PATIENT AMBULATED OUT OF HOSPITAL WITH ALL BELONGINGS.
[2018-01-19] MEDS ORDERED: ONDANSETRON HCL4 M2 PO (14:31)
[2018-01-19] MEDS ORDERED: PHENERGAN 25 MG25 MG PO (15:25)
[2018-01-19] MEDS ORDERED: PROMS25 WY RECTAL (15:25)
[2018-01-19] MEDS ORDERED: ROBAXIN 750 MG750 M1 PO (16:01)
--- NOTE | 2018-01-22 07:55 | CON ---
[address] [address] CONSULTATION Name: RUBIN LUIS Room: [address] IN .R.#: [id number] Admission: 01/15/18 Attend Phys: Micheal King, Discharge: 01/18/18 Date of : 89 Report #: [id number] THIS REPORT FOR: //name// CC: Kerline Irvin OFFAL SEPARATOR Micheal King DATE OF SERVICE: 01/16/2018 REASON FOR CONSULTATION: Rectal bleeding. IMPRESSION: 1. Rectal bleeding secondary to Crohn's colitis. 2. Severe Crohn's colitis, which is steroid dependent. 3. Anemia, which is multifactorial. 4. Abdominal pain secondary to #1. 5. Elevated lipase of uncertain etiology without evidence for pancreatitis on CT scan. 6. Profound weight loss secondary to #1. RECOMMENDATIONS: 1. Agree with the patient being admitted to hospital for IV steroids, pain medications, etc. 2. No plans for any GI evaluation at this time including upper or lower endoscopies as these has already been done in the recent past and have demonstrated severe Crohn's colitis. 3. We will adjust pain medications while in the hospital and convert to an oral regimen that will keep the pain under control. 4. We will begin the patient on Humira induction therapy later this week and have her followup thereafter. I discussed these impressions and plans with the patient as well as her mother and they are agreeable to the same. HISTORY OF PRESENT ILLNESS: The patient is a very pleasant 27-year-old white female with severe Crohn's colitis who has been admitted to the hospital at least 2 or 3 times in the last few months because of problems related to having severe abdominal pains associated with bloody diarrhea. She was diagnosed with relapsing Crohn's colitis and has been steroid-dependent since early this year. Reports that she has not had insurance until recently and has had to be on chronic steroids for the last several months. She is currently on 80 mg daily divided dose. She recently was approved to Humira Patient Assistance Program and is set to receive her Humira induction dosing later this week. She is admitted to the hospital because of problems with rectal bleeding and abdominal pain. She is admitted to the hospital for further evaluation [place] [address] CONSULTATION Name: RUBIN LUIS Nory Room: [address]#: [id number] Admission: 01/15/18 Attend Phys: Micheal King, Discharge: 01/18/18 Date of : 89 Report #: [id number] ALLERGIES: IBUPROFEN. MEDICATIONS: At home include prednisone 80 mg daily in divided doses. She is on Fusion Plus iron supplement. She is also on some omeprazole and dicyclomine. PAST MEDICAL HISTORY: Remarkable for Crohn's colitis with relapsing disease, history of chronic anemia secondary to the same. She has had previous tonsillectomy. She has had fallopian tube removal as well. SOCIAL HISTORY: The patient does not smoke or drink. FAMILY HISTORY: Negative. PHYSICAL EXAMINATION: GENERAL: An ill-appearing 27-year-old white female who is awake and alert. CARDIOPULMONARY: Revealed a regular rate and rhythm. LUNGS: Clear. ABDOMEN: Soft, diffusely tender, no rebound or guarding noted. LABORATORY DATA: From the revealed a white count of 12.7, hemoglobin 11.0, platelet count of 258,000. Her MCV is 71.9 and RDW is 28.0. Sodium 134, potassium 3.6, chloride 97, bicarbonate is 32, BUN is 12, creatinine 0.5. Total bilirubin 0.3, alkaline phosphatase is 97, AST is 18, ALT is 116. Her albumin is only 2.9. With hydration, the patient's hemoglobin dropped down into the 9 gram range. The patient underwent a CT scan of the abdomen and pelvis with IV contrast on January 15 which revealed a diffuse thickening of the colon, which appears to be a little bit improved since the previous study. She does have mild right hydronephrosis and mild right hydroureter. DISCUSSION: At the present time, the patient is having issues with her Crohn's and ____ problems related to the same. We will proceed with giving her IV steroids in the form of Solu-Medrol 40 mg IV q. 12 hours. She is on morphine, but she switched over to mg twice daily and OxyIR 5 mg p.r.n. breakthrough pain. The patient will begin on Humira induction therapy later this week and then we will determine when she needs to come back to see us in the office. I have discussed the plan with the patient as well and she is agreeable to the same. <ELECTRONICALLY SIGNED> By: Dennis Mckenzie DO 01/22/18 0755 [id number] [id number] Mckenzie DO /nt
== END 2018-01-18 14:39 | disposition home or self-care (01) | DRG 386 ==
LOC: M.ERS 12:49 → M.2W 15:11 → M.ORTHSURG 15:11 → M.TBA-ER 15:11 → M.2W 16:11 → M.ORTHSURG 01-17 14:56
PROVIDERS: Internal Medicine Gastroenterology; Nurse Practitioner Family; ADMIT Family Medicine
DX: K50.111 Crohn's disease of large intestine with rectal bleeding (principal); N30.01 Acute cystitis with hematuria; N13.4 Hydroureter; Z68.1 Body mass index [BMI] 19.9 or less, adult; K52.9 Noninfective gastroenteritis and colitis, unspecified; G89.29 Other chronic pain; E87.5 Hyperkalemia; D50.9 Iron deficiency anemia, unspecified; R63.4 Abnormal weight loss; E53.8 Deficiency of other specified B group vitamins; E87.6 Hypokalemia; Z90.79 Acquired absence of other genital organ(s); Z79.899 Other long term (current) drug therapy; Z88.8 Allergy status to other drugs, medicaments and biological substances

== ENCOUNTER 2018-01-19 12:47 | Emergency (ER) | payer OTHER, MEDICAID ==
[~2018-01-19] VITALS: Ht 162.6 cm; Wt 42.6 kg
[~2018-01-19 12:47] MED LIST changes: +OXYCONTIN20 M1 PO; +VITAMIN B125000 MCG PO
[2018-01-19 14:08] LABS: HEMOGLOBIN 9.7 gm/dL (12.0-15.0); NUCLEATED RBCS 0 /100WBC; WBC 7.6 thou/uL (4.0-11.0)
[2018-01-19 14:13] LABS: HEMATOCRIT 30.5 % (37.0-47.0); MCHC 31.9 g/dL (28.0-37.0); MCV 75.1 fL (80.0-100.0); MPV 5.8 fl. (7.2-11.1); PLATELET COUNT* 297 thou/uL (150-400); RBC 4.06 mil/uL (4.20-5.00); RDW-CV 27.6 % (10.5-14.5)
[2018-01-19 14:15] LABS: CALCIUM 7.8 mg/dL (8.5-10.1); CREATININE 0.7 mg/dL (0.6-1.3); POTASSIUM 3.4 mmol/L (3.5-5.1)
[2018-01-19 14:20] LABS: ALBUMIN 2.2 g/dL (3.4-5.0); TOTAL BILIRUBIN 0.4 mg/dL (<0.1-1.0); TOTAL PROTEIN 5.8 g/dL (6.4-8.2)
[2018-01-19] MEDS ORDERED: ONDANSETRON HCL4 M2 PO (14:31)
[2018-01-19 14:51] LABS: ABSOLUTE LYMPHOCYTES 3.2 thou/uL (0.8-5.3); ABSOLUTE MONOCYTES 0.5 thou/uL (0.0-1.2)
[2018-01-19 14:55] LABS: ANISOCYTOSIS 3+; PLATELET ESTIMATE ADEQUATE; POIKILOCYTOSIS Occasional
[2018-01-19 14:56] LABS: MICROCYTES 1+; OVALOCYTES Occasional
[2018-01-19] MEDS ORDERED: PROMS25 WY RECTAL (15:25)
[2018-01-19] MEDS ORDERED: PHENERGAN 25 MG25 MG PO (15:25)
[2018-01-19] MEDS ORDERED: ROBAXIN 750 MG750 M1 PO (16:01)
[2018-01-19 16:16] VITALS: BP 96/49
== END 2018-01-19 16:30 | disposition home or self-care (01) ==
LOC: M.ERS 12:47
PROVIDERS: Nurse Practitioner Family
DX: M54.31 Sciatica, right side (principal); M54.32 Sciatica, left side; M79.1 Myalgia; M79.601 Pain in right arm; M79.602 Pain in left arm; K50.90 Crohn's disease, unspecified, without complications; Z88.6 Allergy status to analgesic agent

== ENCOUNTER 2019-10-28 11:41 | Emergency (ER) | payer OTHER ==
[~2019-10-28] VITALS: Ht 162.6 cm; Wt 72.6 kg
[~2019-10-28 11:41] MED LIST changes: +PHENERGAN 25 MG25 MG PO; +PROMS25 WY RECTAL; +ROBAXIN 750 MG750 M1 PO
[2019-10-28] MEDS ORDERED: PREDNISONE 5 MG5 M1 (12:03)
[2019-10-28] MEDS ORDERED: ZANAFLEX4 M1 PO (12:04)
[2019-10-28] MEDS ORDERED: EXCEDRIN MIGRA1 EAC1 PO (12:04)
[2019-10-28] MEDS ORDERED: REMICADE 1100 MG/VIA (12:04)
[2019-10-28] MEDS ORDERED: BUTALB-APAP-CA1 EACH PO ×3 (13:09→13:14)
[2019-10-28] MEDS ORDERED: FIORINAL 50-321 EACH PO (13:14)
[2019-10-28 13:22] VITALS: BP 92/48
== END 2019-10-28 13:23 | disposition home or self-care (01) ==
LOC: M.ERS 11:41
DX: G43.909 Migraine, unspecified, not intractable, without status migrainosus (principal); Z88.6 Allergy status to analgesic agent; Z79.82 Long term (current) use of aspirin; Z79.899 Other long term (current) drug therapy; Z98.51 Tubal ligation status

== ENCOUNTER 2020-09-22 17:57 | Emergency (ER) | payer OTHER ==
[~2020-09-22] VITALS: Ht 162.6 cm; Wt 72.6 kg
[~2020-09-22 17:57] MED LIST changes: +BUTALB-APAP-CA1 EACH PO; +EXCEDRIN MIGRA1 EAC1 PO; +FIORINAL 50-321 EACH PO; +PREDNISONE 5 MG5 M1; +REMICADE 1100 MG/VIA; +ZANAFLEX4 M1 PO
[2020-09-22] MEDS ORDERED: PRILOSEC OTC20 MG PO (18:11)
[2020-09-22] MEDS ORDERED: EMGALITY120 MG/1 M SUBQ (18:11)
[2020-09-22] MEDS ORDERED: ONZETRA XSAIL11 MG PO (18:12)
[2020-09-22] MEDS ORDERED: FUSION PLUS CA1 EACH PO (18:12)
[2020-09-22] MEDS ORDERED: PREVACID15 MG PO (18:12)
[2020-09-22] MEDS ORDERED: TRAMADOL 50 MG50 MG PO (18:13)
[2020-09-22] MEDS ORDERED: NARATRIPTAN HCL1 MG PO (18:13)
[2020-09-22] MEDS ORDERED: EFFEXOR XR75 MG PO (18:14)
[2020-09-22 18:19] LABS: URINE BILIRUBIN NEGATIVE (Negative); URINE BLOOD NEGATIVE (Negative); URINE CLARITY CLEAR; URINE COLOR YELLOW; URINE GLUCOSE-RANDOM NEGATIVE (Negative); URINE KETONES NEGATIVE (Negative); URINE LEUKOCYTES-REFLEX 1+ (Negative); URINE NITRITE-REFLEX NEGATIVE (Negative); URINE PROTEIN NEGATIVE (Negative); URINE SPECIFIC GRAVITY 1.025 (1.005-1.030); URINE UROBILINOGEN 0.2 E.U./dl (0.2-1.0)
[2020-09-22 18:26] LABS: SQUAMOUS 4-10 Moderate /LPF (0-3)
[2020-09-22 18:27] LABS: BACTERIA-REFLEX 1-9 Few /HPF (None Seen); CASTS None Seen /LPF (None Seen); CRYSTALS None Seen /LPF (None Seen); URINE RBC 0-2 Rare /HPF (0-2); URINE WBC-REFLEX 6-15 Few /HPF (0-5)
[2020-09-22 18:46] LABS: ABSOLUTE BASOPHILS 0.1 thou/uL (0.0-0.2); ABSOLUTE EOSINOPHILS 0.1 thou/uL (0.0-0.7); ABSOLUTE LYMPHOCYTES 3.2 thou/uL (0.8-5.3); ABSOLUTE NEUTROPHILS 5.5 thou/uL (1.6-8.1); BASOPHILS 0.7 %; EOSINOPHILS 1.3 %; HEMATOCRIT 37.2 % (37.0-47.0); HEMOGLOBIN 12.7 gm/dL (12.0-15.0); LYMPHOCYTES 32.2 %; MCH 28.4 pg (26.0-34.0); MCHC 34.2 g/dL (28.0-37.0); MONOCYTES 10.4 %; MPV 6.9 fl. (7.2-11.1); NUCLEATED RBCS 0 /100WBC; PLATELET COUNT* 315 thou/uL (150-400); POLYS 55.4 %; RBC 4.48 mil/uL (4.20-5.00); RDW-CV 12.7 % (10.5-14.5)
[2020-09-22 18:52] LABS: CALCIUM 8.5 mg/dL (8.5-10.1); CREATININE 0.8 mg/dL (0.6-1.3); POTASSIUM 3.5 mmol/L (3.5-5.1)
[2020-09-22 18:56] LABS: ALBUMIN 3.5 g/dL (3.4-5.0); TOTAL BILIRUBIN 0.2 mg/dL (<0.1-1.0); TOTAL PROTEIN 7.6 g/dL (6.4-8.2)
[2020-09-22] MEDS ORDERED: PREDNISONE 10 M10 M1 PO (23:27)
[2020-09-22] MEDS ORDERED: HYDROCODON-ACE1 EAC8 PO (23:27)
[2020-09-22 23:35] VITALS: BP 111/70
== END 2020-09-22 23:35 | disposition home or self-care (01) ==
LOC: M.ERS 17:57
PROVIDERS: Nurse Practitioner Family
DX: K50.90 Crohn's disease, unspecified, without complications (principal); Z88.6 Allergy status to analgesic agent; Z98.51 Tubal ligation status